=== PATIENT | female | born 1955 | race Caucasian/White ===

== ENCOUNTER 2017-12-20 08:45 | Emergency (ER) | payer OTHER ==
--- NOTE | 2017-12-20 09:04 | ED ---
Hypertension - HPI Summary HPI Summary: Pt is a 62 y/o female who presents to the ED c/o HTN since 6:45. She states on the way to work her face, neck, and ears suddenly felt flushed. Pt also reports her chest feeling tight and hot in the center, but this is now resolved. The symptoms continued to worsen, and she took a Lorazepam because she thought it was anxiety. The symptoms did not resolve. Pt went to [facility] to get her BP checked, and it was 180/100. She denies any PMHx of HTN or cardiac issues, but is borderline diabetic. Pt denies any headache, dizziness, slurred speech, or facial droop. She states she recently had a normal stress test. FHx HTN (brother). Pt is a smoker. Home Medications Medication Instructions Recorded Confirmed Type Cymbalta 60 mg PO DAILY 05/16/12 05/03/14 History Flonase 50 dose PO DAILY 05/16/12 05/03/14 History Lorazepam 0.05 mg PO PRN 05/16/12 05/03/14 History Protonix 40 mg PO 05/16/12 05/03/14 History Varenicline Tartrate [Chantix] 1 mg PO BID 05/03/14 05/03/14 History - History of Current Complaint Chief Complaint: EDHypertension Stated Complaint: POSS HIGH BLOOD PRESSURE Time Seen by Provider: 12/20/17 08:54 Hx Obtained From: Patient Onset/Duration: Started Hours Ago - 6:45, Resolved Timing: Constant Aggravating Factor(s): Nothing Alleviating Factor(s): Nothing Associated Signs & Symptoms: Chest Pain - Allergies/Home Medications Allergies/Adverse Reactions: Allergies Allergy/AdvReac Type Severity Reaction Status Date / Time No Known Allergies Allergy Verified 05/16/12 08:01 PMH/Surg Hx/FS Hx/Imm Hx Endocrine/Hematology History: Denies: Hx Diabetes, Hx Systemic Lupus Erythematosus, Hx Thyroid Disease Cardiovascular History: Reports: Hx Hypercholesterolemia - WT CONTROLLED PER PT , Other Cardiovascular Problems/Disorders - MURMER NO TREATMENT Denies: Hx Congestive Heart Failure, Hx Hypertension Respiratory History: Denies: Hx Asthma GI History: Reports: Hx Gastroesophageal Reflux Disease, Other GI Disorders - RLQ PAIN 6 WEEKS INTERMITTENT BOWEL CHANGES CONSTIPATION History: Denies: Hx Dialysis, Hx Renal Disease Musculoskeletal History: Denies: Hx Rheumatoid Arthritis - Cancer History Hx Chemotherapy: No Hx Radiation Therapy: No - Surgical History Surgery Procedure, Year, and Place: LEE 1976,CRANIOTOMY 2002 HX S[place]ING[place] , APPENDECETOMY, tonsillectomy Infectious Disease History: No Infectious Disease History: Denies: Traveled Outside the [place] in Last 30 Days - Family History Known Family History: Positive: Hypertension - brother - Social History Alcohol Use: None Hx Substance Use: No Substance Use Type: Reports: None Hx Tobacco Use: Yes Smoking Status (MU): Heavy Every Day Tobacco Smoker Review of Systems Positive: Chest Pain - Tightness, hotness Positive: Other - Flushed face, ears, neck Neurological: Other - NEGATIVE: dizziness, facial droop Negative: Headache, Slurred Speech All Other Systems Reviewed And Are Negative: Yes Physical Exam - Summary Physical Exam Summary: Appearance: Well-appearing, moderate pain distress, well-nourished Skin: Warm, color reflects adequate perfusion, dry Head: Normal Head/Face inspection, atraumatic Eyes: Conjunctiva clear ENT: Normal inspection Neck: Supple, no nodes, no JVD Respiratory: Lungs clear, normal breath sounds, no respiratory distress Cardio: RRR, No murmur, pulses normal, brisk capillary refill Abdomen: Soft, nontender Bowel sounds: Present Musculoskeletal: Strength Intact/ROM intact, no calf tenderness, no edema. Psychological: Normal Neuro: Alert, muscle tone normal, no focal deficit Triage Information Reviewed: Yes Vital Signs On Initial Exam: Initial Vitals Temp Pulse Resp BP Pulse Ox 98.3 F 103 20 167/98 95 12/20/17 08:46 12/20/17 08:46 12/20/17 08:46 12/20/17 08:46 12/20/17 08:46 Vital Signs Reviewed: Yes Diagnostics - Vital Signs Vital Signs Temp Pulse Resp BP Pulse Ox 12/20/17 08:46 98.3 F 103 20 167/98 95 - Laboratory Result Diagrams: 12/20/17 09:51 12/20/17 09:51 Lab Statement: Any lab studies that have been ordered have been reviewed, and results considered in the medical decision making process. - Radiology CXR Xray Interpretation: Positive (See Comments) - Minimal LEFT basilar subsegmental atelectasis. ED physician reviewed radiology report. Radiology Interpretation Completed By: Radiologist - EKG 08:53 Cardiac Rate: NL - 89 bpm EKG Rhythm: Sinus Rhythm ST Segment: Normal Ectopy: None EKG Interpretation: An EKG at 8:53 reveals nml AV/IV CT, nml QTc, and nml axis Re-Evaluation - Re-Evaluation Second Eval Re-Evaluation Time: 11:44 Change: Improved Comment: Discussing discharge with pt. First Eval Re-Evaluation Time: 09:56 Change: Improved Comment: Pt feels fine now. Her BP is now 136/82. Pt reports her normal systolic is 117. Her accompanies her. Hypertension Course/Dx - Course Course Of Treatment: A CXR revealed Minimal LEFT basilar subsegmental atelectasis. An EKG revealed a normal rate of 89 bpm, nml AV/IV CT, nml QTc, and nml axis - Diagnoses Provider Diagnoses: Hypertensive emergency Discharge - Sign-Out/Discharge Documenting (check all that apply): Patient Departure - Discharge - Discharge Plan Condition: Stable Disposition: HOME Patient Education Materials: How to Stop Smoking (ED), Hypertensive Crisis (ED) , Hypertension (ED) Forms: *Work Release Referrals: Endy Hodge MD [Primary Care Provider] - (as soon as possible 1-2 days. ) Additional Instructions: You reported a blood pressure of 180/100 from [facility] today. In the ER your blood pressures were not that high. Without medication your blood pressure was 136/82. You should see Dr. Hodge as soon as possible to see if you need to begin anti-hypertensive meds. Return to the emergency department for new or worsening symptoms - Attestation Statements Document Initiated by Scribe: Yes Documenting Scribe: Treasure Saldana Provider For Whom Scribe is Documenting (Include Credential): Margret Flores MD Scribe Attestation: Treasure Pemberton, scribed for Margret Flores MD on 12/20/17 at 1904.
[2017-12-20 10:05] LABS: ABS Basophils 0.1 10^3/ul (0-0.2); ABS Eosinophils 0.2 10^3/ul (0-0.6); ABS Monocytes 0.6 10^3/ul (0-0.8); ABS Neutrophils 5.7 10^3/ul (1.5-7.7); ABS Nucleated RBC 0 10^3/ul; Eosinophil % 1.9 % (0-6); Hematocrit 43 % (35-47); Hemoglobin 14.7 g/dl (12.0-16.0); Lymphocyte % 23.1 % (25-47); Mean Corpuscular HGB Conc 35 g/dl (31-36); Mean Corpuscular Hemoglobin 31 pg (27-31); Mean Corpuscular Volume 90 fL (80-97); Mean Platelet Volume 8.5 um3 (7.4-10.4); Nucleated Red Blood Cells % 0.2; Platelet Count 269 10^3/ul (150-450); Red Blood Count 4.74 10^6/ul (4.00-5.40); Red Cell Distribution Width 12 % (10.5-15); White Blood Count 8.5 10^3/ul (3.5-10.8)
[2017-12-20 10:14] LABS: INR 0.98 (0.77-1.02)
[2017-12-20 10:22] LABS: EGFR Non-African American 59.1 (>60)
--- NOTE | 2017-12-20 10:33 | RAD ---
Indication: Chest pain, hypertension. History of tobacco use. Comparison: May 16, 2012 CT abdomen. March 27, 2008 chest radiograph. Technique: Upright AP 1015 hours Report: Minimal linear subsegmental atelectasis at the LEFT lung base. The lungs and pleural spaces are otherwise clear. Negative for pneumothorax. The heart, pulmonary vasculature, and mediastinal contours are unremarkable. IMPRESSION: #. Minimal LEFT basilar subsegmental atelectasis.
[2017-12-20 12:04] VITALS: BP 133/85
== END 2017-12-20 12:03 | disposition home or self-care (01) ==
LOC: ED 08:45
DX: I10 Essential (primary) hypertension (principal); J98.11 Atelectasis; R73.03 Prediabetes; F17.200 Nicotine dependence, unspecified, uncomplicated; Z82.49 Family history of ischemic heart disease and other diseases of the circulatory system
CPT/HCPCS: 36415; 71045; 80053; 82550; 82553; 83605; 83735; 83880; 84436; 84443; 84484; 85025; 85379; 85610; 85730; 93005; 99282

== ENCOUNTER 2018-01-23 07:57 | Day surgery (SDC) | payer OTHER ==
[~2018-01-23 07:57] MED LIST: Buffered Lidocaine 0.9% SYRIN* 5 ML/SYR SYRINGE INTRADERM ONE
[2018-01-23] MEDS ORDERED: Buffered Lidocaine 0.9% SYRIN* 5 ML/SYR SYRINGE ONE (08:08)
[2018-01-23] MEDS ORDERED: Lidocaine 2% PF * 5 ML VIAL ONE (08:54)
[2018-01-23] MEDS ORDERED: Propofol* 10 MG/ML 20 ML BTL IV PUSH ONE (08:54)
[2018-01-23] MEDS ORDERED: Midazolam* 1 MG/ML 2 ML VIAL (2 MG) ONE ×2 (09:35→13:04)
[2018-01-23] MEDS ORDERED: fentaNYL* 50 MCG/ML 2 ML VIAL (100 MCG VIAL) ONE (09:35)
[2018-01-23] MEDS ORDERED: Bupivacaine 0.25% SDV* 30 ML ONE (10:36)
[2018-01-23] MEDS ORDERED: Propofol* 500 MG/50 ML BTL ONE (10:55)
[2018-01-23] MEDS ORDERED: Ketorolac INJ* 30 MG/ML 1 ML VIAL IV PRN (11:30)
[2018-01-23] MEDS ORDERED: Acetaminophen IV 1GM/100ML * 1,000 MG/100 ML VIAL IVPB ONE (11:30)
[2018-01-23] MEDS ORDERED: Naloxone* 0.4 MG/ML 1 ML VIAL IV PRN (11:30)
[2018-01-23 12:12] VITALS: BP 123/73
--- NOTE | 2018-01-23 15:49 | OP ---
DATE OF OPERATION: 01/23/18 - SDS DATE OF : 57 SURGEON: Tyson Hua MD BENEFITS OFFICER: None. ANESTHESIOLOGIST: Dr. Matos. ANESTHESIA: Local MAC. PRE-OP DIAGNOSIS: Right middle trigger finger. POST-OP DIAGNOSIS: Right middle trigger finger. OPERATIVE PROCEDURE: Right middle trigger finger release with release of A1 melly. INDICATIONS: Vero has had a longstanding right middle trigger finger. We had talked about risks and benefits. She had wanted to have it released. ESTIMATED BLOOD LOSS: 1 mL. COMPLICATIONS: None. FINDINGS: See above and below. DESCRIPTION OF PROCEDURE: Vero was seen in the preoperative holding area. The correct side, site, and procedure were identified. We came back to the operating room where she got some numbness medicine to anesthetize the operative area. The arm was then prepped and draped in the usual fashion. A time-out was performed. The arm was exsanguinated with the Esmarch and the tourniquet was inflated to 250 mmHg. An oblique 1 cm incision was made utilizing the one of the palmar creases over the A1 melly. Dissection was carried down bluntly and full- thickness flaps was raised off the tendon sheath. The tendon sheath was released along its radial 3rd longitudinally in line with the tendons first with the 13 blade and then with the tenotomy scissors. There was a very thickened portion of the A1 melly. Once it was entirely released and there was normal triggering, we irrigated out the wound, the skin was closed with 4-0 nylon suture and dressed with soft dressings. Tourniquet was deflated and pinked up immediately. She was taken to the recovery room in stable condition. [id number]/[facility] #: [id number] [facility]
== END 2018-01-23 12:23 | disposition home or self-care (01) ==
LOC: OR 07:57
PROVIDERS: ATTEND Orthopaedic Surgery Hand Surgery
DX: M65.331 Trigger finger, right middle finger (principal); Z72.0 Tobacco use; F41.8 Other specified anxiety disorders; I10 Essential (primary) hypertension; E78.00 Pure hypercholesterolemia, unspecified
CPT/HCPCS: J2250; J2704; J3010

== ENCOUNTER 2022-12-16 02:01 | Observation (INO) ==
[2022-12-16 02:28] LABS: ABS Basophils 0.1 10^3/uL (0.0-0.1); ABS Eosinophils 0.2 10^3/uL (0.0-0.5); ABS Lymphocytes 2.1 10^3/uL (1.0-4.8); ABS Monocytes 0.6 10^3/uL (0.0-0.9); ABS Neutrophils 2.5 10^3/uL (1.5-7.6); ABS Nucleated RBC 0.01 10^3/ul; Eosinophil % 4.1 %; Hematocrit 36.3 % (35-45); Hemoglobin 12.6 g/dL (11.5-14.3); Lymphocyte % 38.9 %; Mean Corpuscular Hemoglobin 32.8 pg (27-33); Mean Corpuscular Hgb Conc 34.7 g/dL (31-36); Mean Corpuscular Volume 94.5 fL (80-97); Mean Platelet Volume 8.1 fL (7.5-11.2); Nucleated Red Blood Cells % 0.1 /100 WBC (0.0-0.4); Platelet Count 229 10^3/uL (150-450); Red Blood Count 3.84 10^6/uL (3.63-4.92); Red Cell Distribution Width 12.7 % (12-17); White Blood Count 5.5 10^3/uL (3.8-11.8)
[2022-12-16 02:34] LABS: INR 1.12 (0.83-1.13)
[2022-12-16 02:44] LABS: Albumin 4.3 g/dL (3.2-5.2); Albumin/Globulin Ratio 1.7 (1-3); Calcium 8.9 mg/dL (8.6-10.3); Creatinine, Serum 0.99 mg/dL (0.51-0.95); Globulin 2.5 g/dL (2-4); Potassium 3.7 mmol/L (3.5-5.0); Total Bilirubin 0.5 mg/dL (0.2-1.0); Total Protein 6.8 g/dL (6.4-8.9); eGFR CKD-EPI 62.9 (>60)
[2022-12-16 04:22] LABS: High Sensitivity Troponin 1 Hr 3 pg/mL (<15)
[2022-12-16 08:51] LABS: Urine Appearance Clear; Urine Bilirubin Negative (Negative); Urine Blood Negative (Negative); Urine Color Yellow; Urine Glucose Negative (Negative); Urine Ketones Negative (Negative); Urine Nitrite Negative (Negative); Urine Protein Negative (Negative); Urine Specific Gravity 1.014 (1.002-1.030); Urine Urobilinogen Negative (Negative)
[2022-12-16] MEDS ORDERED: Lidocaine/Epineph/Tetraca GEL 3 ML GEL IN SYR TOPICAL ONE (10:14)
[2022-12-16] MEDS ORDERED: Lidocaine 1% VIAL 10 MG/ML 30 ML VIAL INJ ONE (11:48)
[2022-12-16] MEDS ORDERED: Fluticasone NASAL SPRAY 50MCG 16 gm SPRAY BTL BOTH NARES PRN (13:52)
[2022-12-16] MEDS ORDERED: Thiamine 100 MG/ML 2 ml VIAL (200 mg) IM ONE (20:12)
[2022-12-16] MEDS ORDERED: Enoxaparin 40 MG/0.4 ML SYR SUBCUT SCH (21:00)
[2022-12-16] MEDS: Multivitamins/Minerals TAB PO SCH (21:39)
[2022-12-16] MEDS: Amoxicillin/Clavul 875/125 TAB (Augmentin 875 tab) PO SCH (21:40)
[2022-12-17 07:58] LABS: ABS Basophils 0.1 10^3/uL (0.0-0.1); ABS Eosinophils 0.1 10^3/uL (0.0-0.5); ABS Lymphocytes 1.9 10^3/uL (1.0-4.8); ABS Monocytes 0.7 10^3/uL (0.0-0.9); ABS Neutrophils 3.8 10^3/uL (1.5-7.6); Eosinophil % 1.4 %; Hematocrit 38.1 % (35-45); Hemoglobin 13.2 g/dL (11.5-14.3); Lymphocyte % 28.8 %; Mean Corpuscular Hgb Conc 34.7 g/dL (31-36); Mean Corpuscular Volume 94.9 fL (80-97); Mean Platelet Volume 8.4 fL (7.5-11.2); Platelet Count 211 10^3/uL (150-450); Red Blood Count 4.01 10^6/uL (3.63-4.92); Red Cell Distribution Width 12.8 % (12-17); White Blood Count 6.5 10^3/uL (3.8-11.8)
[2022-12-17 08:09] LABS: Calcium 9.1 mg/dL (8.6-10.3); eGFR CKD-EPI 62.1 (>60)
[2022-12-17] MEDS ORDERED: DULoxetine DR 60 mg CAP PO SCH (09:00)
[2022-12-17] MEDS ORDERED: Calcium Polycarbophil 625mg TB PO SCH (09:00)
[2022-12-17] MEDS: Multivitamins/Minerals TAB PO SCH (09:29)
[2022-12-17] MEDS: Amoxicillin/Clavul 875/125 TAB (Augmentin 875 tab) PO SCH (09:31)
[2022-12-17 12:56] LABS: HDL Cholesterol 79.3 mg/dL
[2022-12-17] MEDS ORDERED: Lidocaine 1% MPF 5 ML VIAL ONE (13:04)
[2022-12-17 15:07] VITALS: BP 135/60
[2022-12-17 15:27] LABS: High Sensitivity Troponin 3 Hr 3 pg/mL (<15)
== END 2022-12-17 18:00 | disposition home or self-care (01) ==
LOC: ED 02:01 → EDHOLD 02:01 → SUATTDRO 12:16 → MEDTELE 21:09
PROVIDERS: ADMIT Hospitalist; ATTEND Internal Medicine